=== PATIENT | female | born 1965 | race Caucasian/White ===

== ENCOUNTER → 2024-12-13 07:39 | Outpatient (REF) | payer OTHER, SELFPAY ==
[2024-12-13 07:45] VITALS: BP 155/92; BP_SYST 69
[2024-12-13 08:40] VITALS: BP 155/92
== END ==
LOC: RADI 07:39
PROVIDERS: ATTENDING PHYSICIAN Otolaryngology; FAMILY PHYSICIAN Family Medicine
DX: E04.1 Nontoxic single thyroid nodule (principal)
CPT/HCPCS: 88173; 10005